=== PATIENT | female | born 1975 | race Caucasian/White ===

== ENCOUNTER → 2016-06-25 | Outpatient (CLI) | payer MEDICARE, MEDICAID ==
[~2016-06-25] MED LIST: ALAV10TA10 PO; ALBU17IN INH; AMIT25TA PO; CALC600T21 PO; FISH1000 PO; FLON0.054; FLUO20CA8 PO; LORT5TAB PO; MELA10CA PO; MULTCAP PO; NEUR300C PO; NEXI40CA PO; OCEA0.654; OFLO1DRO3 AD; POTA75TA PO; TYLE325T5 PO; VITA200T4 PO; VITA500C24 PO; ZOCO20TA PO
--- NOTE | 2016-06-30 09:07 | SLEEPCENT ---
DATE OF PROCEDURE: 06/25/2016 ORDERED BY: TYLER Solo Nocturnal polysomnography was performed for the titration of pressure therapy in this patient with obstructive sleep apnea syndrome, respiratory apnea hypopnea index (AHI) of 7.1. For testing, the patient was fit with a ResMed Quattro full face mask of medium size. 5 cm of water pressure were applied to the circuit and the lights were extinguished. 6 hours and 47 minutes of data were reviewed. There were 250 minutes of sleep identified. Sleep latency was quite prolonged at 72 minutes. Rapid eye movement (REM) latency was also prolonged at 115 minutes. Sleep architecture initially showed poor progression; later in the test this improved and there was evidence of REM sleep on two occasions. Overall sleep efficiency was 62%. The patient's electrocardiogram (EKG) showed a sinus rhythm with an average heart rate of 62 beats per minute. Electroencephalogram (EEG) shows reasonably normal waveforms for awake and sleep. Respiratory events were found best palliated with CPAP at pressure of +9. There was some background limb activity, which improved with optimal pressure therapy. Overall limb movement arousal index remained mildly elevated at 7.7. IMPRESSION: Obstructive sleep apnea syndrome (G47.33). RECOMMENDATION: Nightly use of pressure therapy 9 cm of water.
== END ==
LOC: M SLEEP 19:18
PROVIDERS: ATTEND Nurse Practitioner Adult Health
DX: G47.33 Obstructive sleep apnea (adult) (pediatric) (principal)

== ENCOUNTER → 2016-10-27 | Outpatient (CLI) | payer MEDICARE, MEDICAID ==
--- NOTE | 2016-10-27 16:17 | REP ---
DEEP VENOUS ULTRASONOGRAPHY LEFT UPPER EXTREMITY: REASON: Pain and swelling. COMPARISON EXAM: None. TECHNIQUE: Multiple ultrasonographic images of the deep venous structures of the left upper extremity were obtained to rule out deep venous thrombosis. FINDINGS: There is no abnormal echogenic material seen in any of the visualized deep venous structures of the left upper extremity. Coaptation where applicable is appropriate throughout. Augmentation shows an expected response throughout. IMPRESSION: Negative exam. Signed by Kaleb Ortiz DO 10/27/2016 06:03 P
== END ==
LOC: M RAD 15:18
PROVIDERS: ATTEND Orthopaedic Surgery
DX: M77.12 Lateral epicondylitis, left elbow (principal); Z79.899 Other long term (current) drug therapy

== ENCOUNTER → 2016-12-09 | Outpatient (CLI) | payer MEDICARE, MEDICAID ==
[~2016-12-09] VITALS: Ht 175.3 cm; Wt 122.5 kg
[~2016-12-09] MED LIST changes: +AZEL0.1S3; -CALC600T21 PO; +CALC600T60 PO; +FENO145T PO; +LIDOCAINE 2% INJ 100 MG/5 ML SDV (FOR ANES.) As Ordered ONE; +NS 1,000 ML IV ONE; +PROPOFOL 500 MG/50 ML VIAL As Ordered ONE; +VITA-110 PO; +VITA500T PO; +[UNRECOGNIZED DRUG - OTHER] TOP
--- NOTE | 2016-12-09 12:00 | ROOR ---
Patient Name: Brigette Murphy Procedure Date: 12/09/2016 11:32 AM Date of : 1975 Age: 41 Room: [facility] Gender: Female Note Status: Finalized Procedure: Upper Endoscopy + Biopsies Indications: Heartburn, Exclusion of Galdamez's esophagus Providers: Stone Morales MD Referring MD: Marcelina Menjivar NP Requesting Provider: Medicines: Monitored Anesthesia Care Complications: No immediate complications. Procedure: Pre-Anesthesia Assessment: - The heart rate, respiratory rate, oxygen saturations, blood pressure, adequacy of pulmonary ventilation, and response to care were monitored throughout the procedure. The Endoscope was introduced through the mouth, and advanced to the second part of duodenum. The upper GI endoscopy was accomplished without difficulty. The patient tolerated the procedure well. Findings: The Z-line was irregular and was found 40 cm from the incisors. Multiple biopsies were obtained with cold forceps for evaluation to rule out Galdamez's Esophagus randomly at the gastroesophageal junction. A small hiatal hernia was present. No other significant abnormalities were identified in a careful examination of the stomach. The exam of the duodenum was otherwise normal. Impression: - Z-line irregular, 40 cm from the incisors. - Small hiatal hernia. - Multiple biopsies were obtained at the gastroesophageal junction. - The examination was otherwise normal. Recommendation: - Patient has a contact number available for emergencies. The signs and symptoms of potential delayed complications were discussed with the patient. Return to normal activities tomorrow. Written discharge instructions were provided to the patient. - High fiber diet. - Discharge patient to home. - Continue present medications. - Await pathology results. - Telephone GI clinic for pathology results in 1 week. - Check Portal Online for Path Results.([email or web address] - Follow an antireflux regimen. - The findings and recommendations were discussed with the patient's family. Stone Morales MD Stone Morales MD 12/09/2016 12:00:25 PM This report has been signed electronically. Number of Addenda: 0 Note Initiated On: 12/09/2016 11:32 AM Estimated Blood Loss: Estimated blood loss: none.
--- NOTE | 2016-12-09 12:03 | ROOR ---
Patient Name: Brigette Murphy Procedure Date: 12/09/2016 11:32 AM Date of : 1975 Age: 41 Room: [facility] Gender: Female Note Status: Finalized Procedure: Total Colonoscopy to Cecum Indications: Heme positive stool, Rectal bleeding Providers: Stone Morales MD Referring MD: Marcelina Menjivar NP Requesting Provider: Medicines: Monitored Anesthesia Care Complications: No immediate complications. Procedure: Pre-Anesthesia Assessment: - The heart rate, respiratory rate, oxygen saturations, blood pressure, adequacy of pulmonary ventilation, and response to care were monitored throughout the procedure. The Colonoscope was introduced through the anus and advanced to the cecum, identified by appendiceal orifice and ileocecal valve. The colonoscopy was performed without difficulty. The patient tolerated the procedure well. The quality of the bowel preparation was good. Findings: The perianal and digital rectal examinations were normal. Non-bleeding internal hemorrhoids were found during retroflexion. The hemorrhoids were small and Grade I (internal hemorrhoids that do not prolapse). No other significant abnormalities were identified in a careful examination of the remainder of the colon. The exam was otherwise without abnormality on direct and retroflexion views. Impression: - Non-bleeding internal hemorrhoids. - The examination was otherwise normal on direct and retroflexion views. - No specimens collected. - The exam was otherwise normal to the cecum. Recommendation: - Patient has a contact number available for emergencies. The signs and symptoms of potential delayed complications were discussed with the patient. Return to normal activities tomorrow. Written discharge instructions were provided to the patient. - High fiber diet. - Discharge patient to home. - Continue present medications. - Repeat colonoscopy at age 52 for screening purposes. - Return to referring physician. - The findings and recommendations were discussed with the patient's family. Stone Morales MD Stone Moralse MD 12/09/2016 12:03:03 PM This report has been signed electronically. Number of Addenda: 0 Note Initiated On: 12/09/2016 11:32 AM Estimated Blood Loss: Estimated blood loss: none.
[2016-12-09 12:29] VITALS: BP 150/90
== END ==
LOC: M OPP 10:29
PROVIDERS: ATTEND Internal Medicine Gastroenterology
DX: K64.0 First degree hemorrhoids (principal); R12 Heartburn; K22.8 Other specified diseases of esophagus; K44.9 Diaphragmatic hernia without obstruction or gangrene; K20.9 Esophagitis, unspecified; E04.1 Nontoxic single thyroid nodule; J45.909 Unspecified asthma, uncomplicated; G47.30 Sleep apnea, unspecified; H93.92 Unspecified disorder of left ear; Z79.899 Other long term (current) drug therapy; Z88.8 Allergy status to other drugs, medicaments and biological substances; Z91.030 Bee allergy status; Z88.5 Allergy status to narcotic agent; Z88.0 Allergy status to penicillin; Z88.2 Allergy status to sulfonamides; Z88.1 Allergy status to other antibiotic agents; L23.1 Allergic contact dermatitis due to adhesives

== ENCOUNTER → 2017-01-21 | Outpatient (CLI) | payer MEDICARE, MEDICAID ==
[~2017-01-21] MED LIST changes: -LIDOCAINE 2% INJ 100 MG/5 ML SDV (FOR ANES.) As Ordered ONE; -NS 1,000 ML IV ONE; -PROPOFOL 500 MG/50 ML VIAL As Ordered ONE
--- NOTE | 2017-01-21 13:53 | REP ---
MRI LEFT FOREARM: TECHNIQUE: Multiple sequences obtained in the axial, coronal and sagittal planes. The left radius and ulna demonstrate normal marrow signal. There is no bone marrow edema or occult fracture. Soft tissue structures demonstrate normal signal. There is a normal amount of joint fluid at the elbow and wrist. I do not see abnormal signal at any of the muscles or tendons of the forearm. I do not see evidence of epicondylitis at the elbow. IMPRESSION: Negative MRI left forearm. Signed by Luis Patel MD 01/21/2017 03:17 P
--- NOTE | 2017-01-21 13:58 | REP ---
MRI LEFT HUMERUS: TECHNIQUE: Multiple sequences obtained in the axial, coronal and sagittal planes. The humerus demonstrates normal marrow signal with no bone marrow edema or occult fracture. Soft tissue structures of the left upper arm demonstrate normal signal. Muscles and tendons demonstrate no abnormal signal. No fluid collection or ganglion cyst is seen. IMPRESSION: Negative MRI left humerus and upper arm. Signed by Luis Patel MD 01/21/2017 03:17 P
== END ==
LOC: M RAD 10:35
PROVIDERS: ATTEND Orthopaedic Surgery
DX: M17.12 Unilateral primary osteoarthritis, left knee (principal)

== ENCOUNTER 2017-04-27 10:56 | Outpatient (RCR) | payer MEDICARE, MEDICAID | END 2017-04-29 | LOC: M OT 10:56 | PROVIDERS: ATTEND Family Medicine | DX: Z51.89 Encounter for other specified aftercare (principal); M79.89 Other specified soft tissue disorders | CPT/HCPCS: 97165; G8984; G8985 ==

== ENCOUNTER → 2021-07-18 | Outpatient (CLI) | payer OTHER, MEDICAID ==
[~2021-07-18] MED LIST changes: -AMIT25TA PO; +AMIT25TA17 PO; -FENO145T PO; +FENO145T7 PO; +FLUO-96 PO; -FLUO20CA8 PO; +VITA-243 PO; -VITA500T PO
== END ==
LOC: M RAD 08:17
PROVIDERS: ATTEND Physical Medicine & Rehabilitation
DX: M47.892 Other spondylosis, cervical region (principal)
CPT/HCPCS: 78315; A9503

== ENCOUNTER → 2021-09-03 | Outpatient (CLI) | payer MEDICAID, MEDICARE, OTHER ==
[~2021-09-03] MED LIST changes: +PROHANCE 279.3MG/ML 15ML VIAL As Ordered ONE; +PROHANCE 279.3MG/ML 5ML VIAL As Ordered ONE
== END ==
LOC: M RAD 07:06
PROVIDERS: ATTEND Physical Medicine & Rehabilitation
DX: M50.222 Other cervical disc displacement at C5-C6 level (principal)
CPT/HCPCS: 72156; A9576

== ENCOUNTER → 2022-03-24 | Outpatient (CLI) | payer MEDICARE, MEDICAID ==
[~2022-03-24] MED LIST changes: +E-Z-GAS II EFFERVESCENT PACKET (SODIUM BICARB./CITRIC ACID/SIMETHICONE) As Ordered ONE; +E-Z-HD 98% w/w 340GM SUSP BTL As Ordered ONE; +E-Z-PAQUE 96% w/w SUSP 176GM BTL As Ordered ONE; -PROHANCE 279.3MG/ML 15ML VIAL As Ordered ONE; -PROHANCE 279.3MG/ML 5ML VIAL As Ordered ONE; +SIMV-253 PO; -ZOCO20TA PO
== END ==
LOC: M RAD 08:23
PROVIDERS: ATTEND Internal Medicine Gastroenterology
DX: K21.9 Gastro-esophageal reflux disease without esophagitis (principal); K76.0 Fatty (change of) liver, not elsewhere classified; R09.89 Other specified symptoms and signs involving the circulatory and respiratory systems; E66.01 Morbid (severe) obesity due to excess calories; Z90.49 Acquired absence of other specified parts of digestive tract